=== PATIENT | male | born 1995 | race Caucasian/White ===

== ENCOUNTER 2017-02-14 13:35 | Emergency (ER) | payer OTHER | END 2017-02-14 14:05 | disposition home or self-care (01) | LOC: ER 13:35 | DX: K13.0 Diseases of lips (principal); Q89.2 Congenital malformations of other endocrine glands; K21.9 Gastro-esophageal reflux disease without esophagitis; Z79.899 Other long term (current) drug therapy; Z88.1 Allergy status to other antibiotic agents ==